=== PATIENT | female | born 1930 | race Caucasian/White ===

== ENCOUNTER → 2017-09-26 | Outpatient (CLI) | payer MEDICARE ==
[~2017-09-26] MED LIST: ISOVUE-370 50ML VIAL IV ONE
== END | disposition home or self-care (01) ==
LOC: RAH 08:29
PROVIDERS: ATTEND Internal Medicine Gastroenterology
DX: N28.1 Cyst of kidney, acquired (principal)
CPT/HCPCS: 74178; Q9967

== ENCOUNTER 2018-04-17 14:16 | Observation (INO) | payer MEDICARE ==
[~2018-04-17] VITALS: Ht 157.5 cm; Wt 78.0 kg
[2018-04-17] MEDS ORDERED: TRAMADOL HCL 50 MG TABLET ONE (18:36)
[2018-04-17] MEDS ORDERED: SODIUM CHLORIDE 0.9% 1000ML 1,000 ML IV ONE (18:36)
[2018-04-17] MEDS ORDERED: CEFTRIAXONE SODIUM 1 GM ONE (18:36)
[2018-04-17] MEDS ORDERED: IPRATROPIUM/ALBUTEROL SULFATE 3 ML SOLUTION IH ONE (18:40)
[2018-04-17] MEDS ORDERED: ALBUTEROL SULFATE 0.083% 2.5 MG/3 ML INH IH PRN (19:15)
[2018-04-17] MEDS: SODIUM CHLORIDE 0.9% 1000ML 1,000 ML IV SCH (19:15)
[2018-04-17] MEDS ORDERED: TRAMADOL /APAP 37.5MG/325MG TAB PO PRN (19:15)
[2018-04-17 21:20] VITALS: BP 174/84
[2018-04-17] MEDS: ALBUTEROL SULFATE 0.083% 2.5 MG/3 ML INH IH SCH (21:44)
[2018-04-17] MEDS ORDERED: NORT25CA3 PO (23:27)
[2018-04-17] MEDS ORDERED: ALBU8.5H8 IH (23:27)
[2018-04-17] MEDS ORDERED: RANI150T7 PO (23:27)
[2018-04-17] MEDS ORDERED: CHOL100044 PO (23:27)
[2018-04-17] MEDS ORDERED: MVIT PO (23:27)
[2018-04-17] MEDS ORDERED: CALC1TAB3 PO (23:27)
[2018-04-17] MEDS ORDERED: HYDR12.530 PO (23:27)
[2018-04-17] MEDS ORDERED: XALA2.5OS OU (23:27)
[2018-04-17] MEDS ORDERED: PRAV40TA3 PO (23:27)
[2018-04-17] MEDS ORDERED: CEPH250T PO (23:27)
[2018-04-17] MEDS ORDERED: CLOP75TA32 PO (23:27)
[2018-04-17] MEDS ORDERED: PROP20TA7 PO (23:27)
[2018-04-17 23:50] VITALS: BP 166/85
[2018-04-18 03:54] VITALS: BP 138/76
[2018-04-18] MEDS: ALBUTEROL SULFATE 0.083% 2.5 MG/3 ML INH IH SCH ×3 (06:18→21:20)
[2018-04-18] MEDS ORDERED: POTASSIUM CHLORIDE 20 MEQ ERTAB PO PRN (07:30)
[2018-04-18] MEDS: INSULIN HUMULIN R 100 UNIT/ML 3ML SQ SCH ×4 (07:30→20:49)
[2018-04-18] MEDS ORDERED: PROCHLORPERAZINE EDISYLATE 10 MG/2 ML VIAL IV PRN (07:30)
[2018-04-18] MEDS ORDERED: GLUCAGON 1MG KIT 1 MG ML IM PRN (07:30)
[2018-04-18] MEDS ORDERED: POTASSIUM CHLORIDE 10% ELIXIR 20 MEQ/15 ML UDCUP PO PRN (07:30)
[2018-04-18] MEDS ORDERED: DEXTROSE 50%-WATER 50 ML DISP.SYRIN IV PRN (07:30)
[2018-04-18] MEDS ORDERED: POTASSIUM CHLORIDE 20MEQ/100ML 100 ML IV PRN (07:30)
[2018-04-18] MEDS ORDERED: ACETAMINOPHEN 325 MG TAB PO PRN ×2 (07:30)
[2018-04-18] MEDS ORDERED: LACTULOSE 20 GM/30 ML UDCUP PO PRN (07:30)
[2018-04-18] MEDS ORDERED: LIDOCAINE HCL-MPF 1% 2ML VIAL IVP PRN (07:30)
[2018-04-18] MEDS ORDERED: METHYLPREDNISOLONE SOD SUCC 125MG/2ML VIAL IVP SCH (07:45)
[2018-04-18 08:00] VITALS: BP 130/58
[2018-04-18] MEDS ORDERED: LATANOPROST 2.5 ML DROPS OU SCH (09:00)
[2018-04-18] MEDS: AZITHROMYCIN 250 MG TABLET PO SCH (10:21)
[2018-04-18] MEDS: CLOPIDOGREL BISULFATE 75 MG TAB PO SCH (10:21)
[2018-04-18] MEDS: HYDROCHLOROTHIAZIDE 25 MG TABLET PO SCH (10:21)
[2018-04-18] MEDS: FAMOTIDINE 20MG TAB 20 MG TAB PO SCH (10:21)
[2018-04-18 12:00] VITALS: BP 152/76
[2018-04-18] MEDS: SODIUM CHLORIDE 0.9% 1000ML 1,000 ML IV SCH ×2 (15:16→20:50)
[2018-04-18 16:00] VITALS: BP 136/69
[2018-04-18] MEDS ORDERED: PREDNISONE 20 MG TABLET PO ONE (16:15)
[2018-04-18] MEDS ORDERED: CEFTRIAXONE SODIUM 1 GM IVP SCH (18:00)
[2018-04-18 19:10] VITALS: BP 146/76
[2018-04-18] MEDS: LATANOPROST 2.5 ML DROPS OU SCH (20:54)
[2018-04-18] MEDS ORDERED: PROPRANOLOL HCL 20 MG TAB PO SCH (21:00)
[2018-04-18] MEDS ORDERED: NORTRIPTYLINE HCL 25 MG PO SCH (21:00)
[2018-04-18] MEDS ORDERED: SIMVASTATIN 20 MG TABLET PO SCH (21:00)
[2018-04-19 00:10] VITALS: BP 132/78
[2018-04-19] MEDS: SODIUM CHLORIDE 0.9% 1000ML 1,000 ML IV SCH (03:37)
[2018-04-19 04:10] VITALS: BP 139/76
[2018-04-19] MEDS: ALBUTEROL SULFATE 0.083% 2.5 MG/3 ML INH IH SCH ×2 (05:07→13:28)
[2018-04-19] MEDS: INSULIN HUMULIN R 100 UNIT/ML 3ML SQ SCH ×2 (06:02→11:30)
[2018-04-19] MEDS: PREDNISONE 20 MG TABLET PO SCH ×2 (06:10→09:08)
[2018-04-19 08:00] VITALS: BP 143/84
[2018-04-19] MEDS: LATANOPROST 2.5 ML DROPS OU SCH (09:00)
[2018-04-19] MEDS: FAMOTIDINE 20MG TAB 20 MG TAB PO SCH (09:07)
[2018-04-19] MEDS: CLOPIDOGREL BISULFATE 75 MG TAB PO SCH (09:07)
[2018-04-19] MEDS: HYDROCHLOROTHIAZIDE 25 MG TABLET PO SCH (09:08)
[2018-04-19] MEDS: AZITHROMYCIN 250 MG TABLET PO SCH (09:08)
[2018-04-19 12:00] VITALS: BP_SYST 110; BP_SYST 170; BP_DIAS 70; BP_DIAS 73
== END 2018-04-19 15:24 | disposition home health service (06) ==
LOC: EDH 14:16 → EDHIP 18:34 → 3DH 20:24
PROVIDERS: ADMIT Internal Medicine; ATTEND Internal Medicine
DX: J20.9 Acute bronchitis, unspecified (principal); E86.0 Dehydration; J30.9 Allergic rhinitis, unspecified; K21.9 Gastro-esophageal reflux disease without esophagitis; E78.2 Mixed hyperlipidemia; G25.81 Restless legs syndrome; H40.9 Unspecified glaucoma; M81.0 Age-related osteoporosis without current pathological fracture; M48.061 Spinal stenosis, lumbar region without neurogenic claudication; G43.909 Migraine, unspecified, not intractable, without status migrainosus; K64.8 Other hemorrhoids; G62.9 Polyneuropathy, unspecified; E88.81 Metabolic syndrome and other insulin resistance; K59.00 Constipation, unspecified; K75.9 Inflammatory liver disease, unspecified; K76.0 Fatty (change of) liver, not elsewhere classified; I70.0 Atherosclerosis of aorta; K58.0 Irritable bowel syndrome with diarrhea; I13.10 Hypertensive heart and chronic kidney disease without heart failure, with stage 1 through stage 4 chronic kidney disease, or unspecified chronic kidney disease; N18.2 Chronic kidney disease, stage 2 (mild); E66.9 Obesity, unspecified; I63.9 Cerebral infarction, unspecified; M96.1 Postlaminectomy syndrome, not elsewhere classified; R32 Unspecified urinary incontinence; R29.6 Repeated falls; Z86.73 Personal history of transient ischemic attack (TIA), and cerebral infarction without residual deficits; Z87.440 Personal history of urinary (tract) infections; Z68.31 Body mass index [BMI] 31.0-31.9, adult; Z82.49 Family history of ischemic heart disease and other diseases of the circulatory system; Z79.899 Other long term (current) drug therapy
CPT/HCPCS: 70450; 71045; 72072; 72100; 72125; 82948 ×4; 94640 ×7; 94664; 96361 ×2; 96372; 96374; 96375; 97116 ×2; 97161; 99285; A4218; G0378 ×45; G8978; G8979; G8980; G8981; G8982; G8983; J0696 ×2; J1815; J2930; J7030 ×2

== ENCOUNTER 2018-04-25 14:21 | Inpatient (IN) | payer MEDICARE ==
[~2018-04-25] VITALS: Ht 157.5 cm; Wt 75.3 kg
[~2018-04-25 14:21] MED LIST changes: +ALBU8.5H8 IH; +CALC1TAB3 PO; +CEPH250T PO; +CHOL100044 PO; +CLOP75TA32 PO; +HYDR12.530 PO; -ISOVUE-370 50ML VIAL IV ONE; +MVIT PO; +NORT25CA3 PO; +PRAV40TA3 PO; +PROP20TA7 PO; +RANI150T7 PO; +XALA2.5OS OU
[2018-04-25 15:12] LABS: BASOPHILS % (AUTO) 0.5 % (0.0-5.0); EOSINOPHILS % (AUTO) 0.3 % (0.0-8.0); HEMATOCRIT 45.8 % (36-48); LYMPHOCYTES % (AUTO) 21.8 % (21.0-51.0); MEAN CORPUSCULAR HEMOGLOBIN 31.3 pg (27.0-33.0); MEAN CORPUSCULAR HGB CONC 33.5 g/dL (32.0-36.0); MEAN CORPUSCULAR VOLUME 93.4 fL (79-99); NEUTROPHILS % (AUTO) 66.4 % (40.0-77.0); PLATELET COUNT (AUTO) 297 K/uL (130-400); RED BLOOD CELL COUNT(AUTO) 4.91 MIL/uL (4.00-5.50); RED CELL DISTRIBUTION WIDTH 14.4 % (11.0-15.5); WHITE BLOOD COUNT (AUTO) 14.9 K/uL (4.8-10.8)
[2018-04-25] MEDS ORDERED: SODIUM CHLORIDE 0.9% 1000ML 1,000 ML IV ONE (15:17)
[2018-04-25 15:27] LABS: POTASSIUM 4.1 mmol/L (3.5-5.1)
[2018-04-25] MEDS ORDERED: SULF1TAB42 PO (18:19)
[2018-04-25] MEDS ORDERED: TRAM50TA4 PO (18:19)
[2018-04-25] MEDS ORDERED: GUAI1TBM19 PO (18:19)
[2018-04-25] MEDS ORDERED: FLUT1AER IH (18:19)
[2018-04-25] MEDS ORDERED: POLY17PO4 PO (18:19)
[2018-04-25] MEDS: SODIUM CHLORIDE 0.9% 1000ML 1,000 ML IV SCH (18:21)
[2018-04-25] MEDS ORDERED: LIDOCAINE HCL-MPF 1% 2ML VIAL IVP PRN (18:30)
[2018-04-25] MEDS ORDERED: LACTULOSE 20 GM/30 ML UDCUP PO PRN (18:30)
[2018-04-25] MEDS ORDERED: MAG HYDROX/AL HYDROX/SIMETH ES 30 ML SUSP UDCUP PO PRN (18:30)
[2018-04-25] MEDS ORDERED: POTASSIUM CHLORIDE 20MEQ/100ML 100 ML IV PRN (18:30)
[2018-04-25] MEDS ORDERED: POTASSIUM CHLORIDE 10% ELIXIR 20 MEQ/15 ML UDCUP PO PRN (18:30)
[2018-04-25] MEDS ORDERED: POTASSIUM CHLORIDE 20 MEQ ERTAB PO PRN (18:30)
[2018-04-25] MEDS ORDERED: ACETAMINOPHEN 325 MG TAB PO PRN (18:30)
[2018-04-25 19:30] VITALS: BP 129/70
[2018-04-25] MEDS: **HM**NORTRIPTYLINE HCL 25 MG CAPSULE PO SCH (21:00)
[2018-04-25] MEDS: ALBUTEROL SULFATE 0.083% 2.5 MG/3 ML INH IH PRN (21:12)
[2018-04-25] MEDS: BUDESONIDE 0.5 MG/2 ML INH IH SCH (21:12)
[2018-04-25] MEDS: GUAIFENESIN/DEXTROMETHORPHAN 1 EACH TAB.SR.12H PO SCH (21:27)
[2018-04-25] MEDS: PROPRANOLOL HCL 20 MG TAB PO SCH (21:27)
[2018-04-25] MEDS: SULFAMETHOX-TMP DS 800/160 TAB PO SCH (21:28)
[2018-04-25] MEDS: ATORVASTATIN CALCIUM 10 MG TABLET PO SCH (21:28)
[2018-04-25] MEDS: ACETAMINOPHEN 325 MG TAB PO PRN (21:39)
[2018-04-25 23:24] VITALS: BP 138/72
[2018-04-26] MEDS: ALBUTEROL SULFATE 0.083% 2.5 MG/3 ML INH IH PRN ×5 (02:22→21:49)
[2018-04-26] MEDS: SODIUM CHLORIDE 0.9% 1000ML 1,000 ML IV SCH ×3 (02:25→20:30)
[2018-04-26 04:08] VITALS: BP 113/72
[2018-04-26 04:31] LABS: HEMATOCRIT 36.8 % (36-48); MEAN CORPUSCULAR HEMOGLOBIN 30.8 pg (27.0-33.0); MEAN CORPUSCULAR HGB CONC 33.1 g/dL (32.0-36.0); MEAN CORPUSCULAR VOLUME 92.8 fL (79-99); PLATELET COUNT (AUTO) 208 K/uL (130-400); RED BLOOD CELL COUNT(AUTO) 3.96 MIL/uL (4.00-5.50); RED CELL DISTRIBUTION WIDTH 14.6 % (11.0-15.5); WHITE BLOOD COUNT (AUTO) 10.2 K/uL (4.8-10.8)
[2018-04-26] MEDS: BUDESONIDE 0.5 MG/2 ML INH IH SCH ×2 (06:35→18:13)
[2018-04-26 07:10] VITALS: BP 123/67
[2018-04-26] MEDS: RANITIDINE HCL 15 MG/1 ML PO SCH (10:09)
[2018-04-26] MEDS: CLOPIDOGREL BISULFATE 75 MG TAB PO SCH (10:10)
[2018-04-26] MEDS: POLYETHYLENE GLYCOL 3350 17 GM POWD.PACK PO SCH (10:10)
[2018-04-26] MEDS: SULFAMETHOX-TMP DS 800/160 TAB PO SCH ×2 (10:10→20:31)
[2018-04-26] MEDS: MULTIVITAMIN TABLET PO SCH (10:10)
[2018-04-26] MEDS: GUAIFENESIN/DEXTROMETHORPHAN 1 EACH TAB.SR.12H PO SCH ×2 (10:10→20:31)
[2018-04-26] MEDS: ENOXAPARIN SODIUM 30 MG/0.3 ML SQ SCH (10:24)
[2018-04-26 12:02] VITALS: BP 126/60
[2018-04-26] MEDS ORDERED: TRAMADOL /APAP 37.5MG/325MG TAB PO PRN (14:30)
[2018-04-26 16:00] VITALS: BP 136/65
[2018-04-26 20:16] VITALS: BP 112/74
[2018-04-26] MEDS: LATANOPROST 2.5 ML DROPS OU SCH (20:30)
[2018-04-26] MEDS: **HM**NORTRIPTYLINE HCL 25 MG CAPSULE PO SCH (20:30)
[2018-04-26] MEDS: ATORVASTATIN CALCIUM 10 MG TABLET PO SCH (20:31)
[2018-04-26] MEDS: PROPRANOLOL HCL 20 MG TAB PO SCH (20:31)
[2018-04-27] VITALS (7 sets, daily range): BP systolic 126–174; BP diastolic 62–83
[2018-04-27] MEDS: ALBUTEROL SULFATE 0.083% 2.5 MG/3 ML INH IH PRN ×5 (01:17→21:22)
[2018-04-27] MEDS: SODIUM CHLORIDE 0.9% 1000ML 1,000 ML IV SCH ×2 (01:45→11:17)
[2018-04-27] MEDS: BUDESONIDE 0.5 MG/2 ML INH IH SCH ×2 (06:17→18:56)
[2018-04-27] MEDS: LATANOPROST 2.5 ML DROPS OU SCH (08:49)
[2018-04-27] MEDS: MULTIVITAMIN TABLET PO SCH (09:12)
[2018-04-27] MEDS: POLYETHYLENE GLYCOL 3350 17 GM POWD.PACK PO SCH (09:12)
[2018-04-27] MEDS: CLOPIDOGREL BISULFATE 75 MG TAB PO SCH (09:12)
[2018-04-27] MEDS: GUAIFENESIN/DEXTROMETHORPHAN 1 EACH TAB.SR.12H PO SCH ×2 (09:12→20:50)
[2018-04-27] MEDS: SULFAMETHOX-TMP DS 800/160 TAB PO SCH ×2 (09:12→20:50)
[2018-04-27] MEDS: RANITIDINE HCL 15 MG/1 ML PO SCH (09:12)
[2018-04-27] MEDS: ENOXAPARIN SODIUM 30 MG/0.3 ML SQ SCH (09:39)
[2018-04-27] MEDS ORDERED: DOCU-116 PO (12:10)
[2018-04-27] MEDS ORDERED: ALBU1.252 IH (12:11)
[2018-04-27] MEDS ORDERED: TRAM-355 PO (12:14)
[2018-04-27] MEDS ORDERED: PRED10TA3 PO (12:15)
[2018-04-27] MEDS ORDERED: PREDNISONE 20 MG TABLET PO SCH (12:15)
[2018-04-27] MEDS ORDERED: AMLO5TAB7 PO (12:21)
[2018-04-27] MEDS: ATORVASTATIN CALCIUM 10 MG TABLET PO SCH (20:50)
[2018-04-27] MEDS: DOCUSATE SODIUM 100 MG CAP PO SCH (20:50)
[2018-04-27] MEDS: **HM**NORTRIPTYLINE HCL 25 MG CAPSULE PO SCH (20:51)
[2018-04-27] MEDS ORDERED: AMLODIPINE BESYLATE 5 MG TAB PO SCH (21:00)
[2018-04-28] MEDS: ALBUTEROL SULFATE 0.083% 2.5 MG/3 ML INH IH PRN ×3 (02:09→11:03)
[2018-04-28 03:29] VITALS: BP 125/57
[2018-04-28] MEDS: BUDESONIDE 0.5 MG/2 ML INH IH SCH (06:09)
[2018-04-28 07:00] VITALS: BP 139/64
[2018-04-28] MEDS: ACETAMINOPHEN 325 MG TAB PO PRN (09:34)
[2018-04-28] MEDS: RANITIDINE HCL 15 MG/1 ML PO SCH (09:35)
[2018-04-28] MEDS: POLYETHYLENE GLYCOL 3350 17 GM POWD.PACK PO SCH (09:35)
[2018-04-28] MEDS: CLOPIDOGREL BISULFATE 75 MG TAB PO SCH (09:35)
[2018-04-28] MEDS: MULTIVITAMIN TABLET PO SCH (09:35)
[2018-04-28] MEDS: DOCUSATE SODIUM 100 MG CAP PO SCH (09:35)
[2018-04-28] MEDS: SULFAMETHOX-TMP DS 800/160 TAB PO SCH (09:35)
[2018-04-28] MEDS: GUAIFENESIN/DEXTROMETHORPHAN 1 EACH TAB.SR.12H PO SCH (09:35)
[2018-04-28] MEDS: ENOXAPARIN SODIUM 30 MG/0.3 ML SQ SCH (09:36)
[2018-04-28] MEDS: LATANOPROST 2.5 ML DROPS OU SCH (09:38)
[2018-04-28 11:00] VITALS: BP 140/66
== END 2018-04-28 13:50 | DRG 641 ==
LOC: EDH 14:21 → EDHIP 14:47 → 3AH 17:30
PROVIDERS: ADMIT Internal Medicine; ATTEND Internal Medicine
DX: E86.0 Dehydration (principal); N39.0 Urinary tract infection, site not specified; G95.9 Disease of spinal cord, unspecified; R62.7 Adult failure to thrive; B96.20 Unspecified Escherichia coli [E. coli] as the cause of diseases classified elsewhere; E11.22 Type 2 diabetes mellitus with diabetic chronic kidney disease; E66.9 Obesity, unspecified; I13.10 Hypertensive heart and chronic kidney disease without heart failure, with stage 1 through stage 4 chronic kidney disease, or unspecified chronic kidney disease; E88.81 Metabolic syndrome and other insulin resistance; K58.0 Irritable bowel syndrome with diarrhea; M48.061 Spinal stenosis, lumbar region without neurogenic claudication; Z68.30 Body mass index [BMI] 30.0-30.9, adult; Z86.73 Personal history of transient ischemic attack (TIA), and cerebral infarction without residual deficits; G43.909 Migraine, unspecified, not intractable, without status migrainosus; E11.42 Type 2 diabetes mellitus with diabetic polyneuropathy; G25.81 Restless legs syndrome; G89.29 Other chronic pain; H40.9 Unspecified glaucoma; K21.9 Gastro-esophageal reflux disease without esophagitis; N18.2 Chronic kidney disease, stage 2 (mild); Z82.49 Family history of ischemic heart disease and other diseases of the circulatory system; Z83.3 Family history of diabetes mellitus; Z90.710 Acquired absence of both cervix and uterus; M81.0 Age-related osteoporosis without current pathological fracture; K76.0 Fatty (change of) liver, not elsewhere classified; I70.0 Atherosclerosis of aorta; Z91.81 History of falling; J30.9 Allergic rhinitis, unspecified; J44.9 Chronic obstructive pulmonary disease, unspecified
CPT/HCPCS: 36415; 73502; 80048; 85025; 85027; 94640; 94664; 97039; J1650; J7030